=== PATIENT | female | born 1965 | race Caucasian/White ===

== ENCOUNTER → 2017-11-09 | Outpatient (CLI) | payer BC | END | disposition home or self-care (01) | LOC: LAB EV 12:59 | DX: B39.0 Acute pulmonary histoplasmosis capsulati (principal) | CPT/HCPCS: 87077; 87086; 87186 ==

== ENCOUNTER → 2019-02-09 | Outpatient (CLI) | payer BC ==
[2019-02-12 13:07] LABS: HPV 16 Negative (Negative); HPV 18 Negative (Negative); HPV OTHER HR TYPES Negative (Negative)
== END | disposition home or self-care (01) ==
LOC: LAB SHORT 12:10 → LAB 12:10
PROVIDERS: Obstetrics & Gynecology
DX: Z01.419 Encounter for gynecological examination (general) (routine) without abnormal findings (principal)
CPT/HCPCS: 87624; G0123

== ENCOUNTER → 2021-12-22 | Outpatient (CLI) | payer BC ==
[2021-12-25 19:06] LABS: HPV 16 Negative (Negative); HPV 18 Negative (Negative); HPV OTHER HR TYPES Negative (Negative)
== END | disposition home or self-care (01) ==
LOC: LAB SHORT 08:20
PROVIDERS: Internal Medicine
DX: Z12.4 Encounter for screening for malignant neoplasm of cervix (principal)
CPT/HCPCS: 87624; G0145

== ENCOUNTER 2023-10-05 10:06 | Day surgery (SDC) | payer BC ==
[~2023-10-05] VITALS: Ht 167.6 cm; Wt 68.3 kg
[2023-10-05 12:19] VITALS: BP 114/76
== END 2023-10-05 12:38 | disposition home or self-care (01) ==
LOC: ORSCSDS 10:06
PROVIDERS: Internal Medicine Gastroenterology
PROC: 0DBH8ZX Excision of Cecum, Via Natural or Artificial Opening Endoscopic, Diagnostic (ICD-10-PCS; principal; 2023-10-05 11:15)
DX: Z12.11 Encounter for screening for malignant neoplasm of colon (principal); Z86.010 Personal history of colon polyps; Z80.0 Family history of malignant neoplasm of digestive organs; D12.0 Benign neoplasm of cecum; K57.30 Diverticulosis of large intestine without perforation or abscess without bleeding
CPT/HCPCS: 88305; A9270; J2704; J7120

== ENCOUNTER → 2024-02-07 | Outpatient (CLI) | payer BC | LOC: LAB 19:02 → LAB SHORT 19:02 | PROVIDERS: Internal Medicine | DX: Z91.89 Other specified personal risk factors, not elsewhere classified (principal) | CPT/HCPCS: G0123 ==

== ENCOUNTER → 2025-02-07 | Outpatient (CLI) | payer BC ==
[2025-02-18 15:38] LABS: HPV HIGH RISK BY TMA Not Detected; HPV SOURCE Not Provided
== END ==
LOC: LAB SHORT 16:45 → LAB 16:45
PROVIDERS: Internal Medicine
DX: Z91.89 Other specified personal risk factors, not elsewhere classified (principal)
CPT/HCPCS: 87624; G0123